=== PATIENT | female | born 1995 | race Caucasian/White ===

== ENCOUNTER 2019-11-29 07:33 | Day surgery (SDC) | payer OTHER, SELFPAY ==
[2019-11-29] VITALS (7 sets, daily range): BP systolic 101–118; BP diastolic 55–70; PULSE 56–78; RESP 15–16; TEMP 36.2–36.4; O2SAT 99–100; BMI 23.8
--- NOTE | 2019-11-29 | MISC_PTH ---
PATIENT: JM ADAMS LOC: [facility] [place] U#:[id number] AGE/SX: 24/F ROOM: RE11/29/[address]: Dr. Anitha Harley MD : 1995 BED: DIS: 11/29/2019 SPEC #: [id number] RECD: 11/29/19 13:30 STATUS: MAT REQ #: [id number] ANTIONE: 11/29/19 00:[address]: Anitha Hills DEPT: SURGICAL PATHOLOGY RECD BY: Duncan Pathak ENTERED: 11/29/19 13:30 SP TYPE: MISC OTHR DR: Dr. Rufina Chairez MD No Primary Care Phys Tissues: A - Peritoneal cavity, NOS B - Endometrial cavity Procedures: Surgery Specimen Level IV HEADER OPERATION: Diagnostic laparoscopy with cystoscopy, lysis of adhesions PRE-OP DIAGNOSIS: Excessive and frequent menstruation with irregular cycle; lower abdominal pain TISSUE SUBMITTED: A - Right uterosacral peritoneal biopsy, B - Endometrial curettings MICROSCOPIC DIAGNOSIS A. Right uterosacral peritoneum, biopsy: Fibrofatty tissue with mild chronic inflammation. B. Endometrium, curettings: Secretory endometrium with glandular and stromal breakdown. AM:kentrell 11/30/19 MICROSCOPIC DESCRIPTION Slides are reviewed. GROSS DESCRIPTION A - Received in fixative is one container labeled with the patient's name and designated right uterosacral peritoneal biopsy. The specimen consists of a fragment of mccloud-pink soft tissue measuring 1.2 x 0.6 x 0.2 cm. The specimen is totally submitted in one cassette. B - Received in fixative is one container labeled with the patient's name and designated endometrial curettings. The specimen consists of multiple fragments of hemorrhagic soft tissue that in aggregate measure 3 x 2.5 x 0.3 cm. The specimen is totally submitted in one cassette. / SJ:kentrell 11/29/19 TC:5 CPT: 36211 x2
--- NOTE | 2019-11-29 06:56 | HP.PCM_ITS ---
History and Physical Date of Admission: 11/29/19 Surgical History and Physical Date: 11/29/2019 Name: JM CRANDALL Age: 24 Date of : 1995 Jm Crandall, a 24 year old female 0 0 0 0 0, presents for Diagnostic laparoscopy, hysteroscopy, d, cystoscopy on November 29, 2019 at 9:00. -- Jm has a hx chronic pelvic pain and heavy prolonged vaginal bleeding refractory to hormonal management. Pt scheduled for Dx Lap with Cystoscopy, hysteroscopy and D and C. Surgical treatment of endometriosis as indicated. Medications and allergies are up to date. Consents signed and reviewed for surgery. hx Deep Pelvic Pain,Daily Bleeding,Increase Migraines. Mj claims it started gradually and has been present worsened in last couple months. It occurs intermittantly. It is located in the lower abdomen. Jm characterizes it to be down to the legs. Jm characterizes the quality sharp.; Jm characterizes the quality searing. Severity is moderate and not improving. MEDICATIONS HISTORY: ALLERGIES: No Known Allergies, Beet and Hives and/or rash Infections - Varicella Vaccine Illnesses - none Accidents - None Hospitalizations - None Review of Systems: GENERAL - Denies fever, or chills SKIN - Denies skin changes EYES - Denies visual changes EARS - Denies difficulty hearing NOSE - Denies nasal congestion or bleeding MOUTH - Denies sore throat or difficulty swallowing NECK - Denies pain or swelling RESPIRATORY - Denies shortness of breath or wheezing CARDIOVASCULAR - Denies palpitations or chest pain GASTROINTESTINAL - Denies nausea, vomiting, diarrhea, constipation GENITOURINARY - Denies dysuria, frequency of urination, incontinence of urine MUSCULOSKELETAL - Denies joint or muscle pain NEUROLOGICAL - Denies localized numbness or weakness PSYCHIATRIC - Denies depression or anxiety ENDOCRINE - Denies heat or cold intolerance, weight loss or gain HEMATO-IMMUNOLOGIC - Denies excesive bleeding with cuts SOCIAL HISTORY: Alcohol Use - occasionally and wine Smoking - denies smoking Diet - no special diet Lifestyle - moderate stress lifestyle and single Exercise - active Seat Belt Use - always Employer - [employer] 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 Illicit Drug Use - denies use of street drugs Sexual Activity - [employer] Residence - rents an apartment Control - condoms FAMILY HISTORY: MENSTRUAL HISTORY: LMP Known?- DefiniteAmount/Duration - 7 to 10 days, Regularity - Regular, Frequency - every 3 months days, LMP - 10/26/19, Age Onset Menarche - 11 PAST PREGNANCIES: Total Pregnancies - 0; Full Term Pregnancies - 0; Premature - 0; Abortions, Induced - 0; Abortions, Spontaneous - 0; Ectopics - 0; Multiple Births - 0; Living Children - 0 PHYSICAL EXAM BP- 122/90 Sitting, Right arm, regular cuff Temp- 98.2 Taken Orally Weight- 147.32777 lbs Height- 65.75 inch BMI:24.05 CONSTITUTIONAL - NAD, well nourished, and well developed SKIN - No rash, lesions, or ulcers HEENT - normocephalic, atraumatic, sclerae anicteric LUNGS - CTA x2 without wheezes, crackles or rales CARDIAC - Regular rate and rhythm without rubs, murmurs, or gallops ABDOMEN - Without hepatosplenomegaly, distention, masses, rebound, or guarding; normal bowel sounds; no hernias EXTREMITIES - No edema or calf tenderness NEUROLOGICAL - normal gait, normal balance, normal motor PSYCHIATRIC - A and O to time, place, person, mood and affect External Genitial Vagina - non-tender without lesions Urethra/Urethral Meatus - non-tender Bladder - +trigonal tenderness Vagina - vaginal mckeon are pink and moist without loss of rugae and no evidence of atropy Cervix - without cervical motion tenderness and has normal size and features without evident lesions, + uterosacral tenderness without nodularity Uterus - 5-6 cm in size, mobile and nontender Adnexa - clear without massess or tenderness Pap - done, nilm 10/29/19 ultrasound 10/29/19 UTERUS: 7.6 x 3.4 x 2.9cm. ENDOMETRIAL ECHO: 6.3mm. RIGHT OVARY: 3.1 x 2.8 x 3.2cm and contains follicular cysts. Largest cyst is 1.4 x 1.1 x 1.2cm.. LEFT OVARY: 2.8 x 1.8 x 1.8cm and contains small follicular cysts.. FREE FLUID: Trace amount in the posterior cul de sac. Laboratory Tests 11/28/19 Range/Units 10:00 COVID-19 (MEHRDAD) Not Detected (Not Detect) ASSESSMENT/PLAN: 1. Excessive And Frequent Menstruation With Irregular Cycle, Lower Abdominal Pain and Unspecified Dfdx endometriosis, IC. AUB persists and pt not candidate for CHCs, sx refractory to POPs. Plan for diagnostic laparoscopy, hysteroscopy, D, cystoscopy Procedural r/b/i/a reviewed Preop pack and preparation discussed Lab pending 2. Lower Abdominal Pain, Unspecified Dfdx interstitial cystitis, endometriosis - cannot r/o both, may also be exacerbated with chronic constipation Refer to Dr. Chairez for eval Pelvic US ordered Plan for diagnostic laparoscopy, hysterocopy (pending US findings), possible cystoscopy as indicated pending Urologic eval Reviewed surgical r/b/i The visit was approximately 25 minutes in length with most of the time spent in discussion and counseling. Procedure Criteria Procedure Type: Elective COVID Risk Discussion: The surgeon/proceduralist and patient have discussed in detail the risk of exposure to and/or potential harm posed by the COVID-19 virus with having a surgery/procedure at this time versus the risk of delaying the surgery/procedure. It is not possible to know either the risk of delaying the surgery or procedure or chance of getting an infection with perfect accuracy, but a joint decision was made between the patient and the surgeon/proceduralist to proceed at this time with the scheduled surgery/procedure as indicated on the consent form.
[2019-11-29 08:02] LABS: Internal QC Validated? YES +Cl - CLEAR BKGD; Pregnancy, Urine Negative Negative
[2019-11-29 08:04] LABS: Hematocrit 40.3 % (37-47); Hemoglobin 13.3 g/dL (12.0-15.0); Mean Corpuscular Hgb 29.8 pg (27.0-32.0); Mean Corpuscular Volume 90.4 fL (81-99); Mean Platelet Vol. 9.2 fl (6.2-12.0); Platelet Count 302 K/mm3 (150-450); RBC Distribution Width CV 12.1 % (11.6-14.6); RBC Distribution Width SD 39.6 fl (35.1-43.9); Red Blood Count 4.46 M/mm3 (4.2-5.4); White Blood Count 5.5 K/mm3 (4.4-11.0)
--- NOTE | 2019-11-29 08:09 | HP.PCM_ITS ---
Problem List (1) Urinary urgency Status: Acute (2) Urinary frequency Status: Acute (3) Bladder pain Status: Acute History of Present Illness Date of Admission: 11/29/19 Chief Complaint: bladder pain, urinary urgency and frequency. The patient is a 24 year old F voiding as often as every 10 minutes, nocturia once, no incontinence. Pelvic pain on the left side mainly, and on exam it is tender to palpation of the left lateral bladder area. Risks, benefits and alternatives were discussed, including that of COVID-19, and she has decided to proceed with cystoscopy under anesthesia for further evaluation. Past Medical History Allergies No Known Allergies Allergy (Verified 11/29/19 07:56) Home Medications: Ambulatory Orders Medication Instructions Recorded Multivitamin with Minerals 1 ea PO DAILY 11/22/19 [Multiple Vitamin] Smoking Status: Never smoker Tobacco Use: Non-smoker Review of Systems Constitutional: Denies: Anorexia, Chills, Fever Eyes: Denies: Vision Change HEENT: Denies: Difficulty Swallowing Cardiovascular: Denies: Chest Pain, Chest Tightness Respiratory: Denies: Cough, Shortness of Breath Gastrointestinal: Reports: - - pelvic pain, bladder pain. Denies: Abdominal Pain Genitourinary: Denies: Dysuria Gynecological: Denies: Vaginal discharge Skin: Denies: Wounds Neurological: Denies: Difficulty swallowing VTE Information - Inpt Only VTE Present on Admission: Yes VTE Mechan Device Prophylaxis: SCD's VTE Pharm Prophylaxis ordered?: No Reason prophylaxis not ordered:: Treatment Not Indicated Patient Problems: Active and Suspected Problems Urinary urgency (Acute) Urinary frequency (Acute) Bladder pain (Acute) - Physical Exam Vitals/I&O's: Vital Signs Temp Pulse Resp BP Pulse Ox 97.5 F L 78 15 116/70 100 11/29/19 07:57 11/29/19 07:57 11/29/19 07:57 11/29/19 07:57 11/29/19 07:57 Oxygen Delivery Method Room Air Weight: 67.1 kg Body Mass Index (BMI) 23.8 General: Alert, Oriented x3, Cooperative, No apparent distress HEENT: Atraumatic, Normocephalic Oral: Moist Mucosa Neck: Supple, Trachea Midline Lungs: Normal air movement Cardiovascular: Regular rate, Regular Rhythm Abdomen: Soft, Non Tender, Non-Distended Extremities: No clubbing Skin: No rashes Musculoskeletal: No Muscle Wasting Neurological: Cranial nerves II-XII grossly intact, Neuro grossly intact Psych/Mental Status: Normal Affect Laboratory Results 11/28/19 10:00: COVID-19 (MEHRDAD) Not Detected 11/29/19 07:50: Urine Test Negative 11/29/19 07:55: WBC 5.5, RBC 4.46, Hgb 13.3, Hct 40.3, MCV 90.4, MCH 29.8, MCHC 33.0, RDW Std Deviation 39.6, RDW Coeff of Fadumo 12.1, Plt Count 302, MPV 9.2 11/29/19 07:55: PT Pending, INR Pending, APTT Pending 11/29/19 07:55: Blood Type Pending, Antibody Screen Pending Current Medications Cefotetan Disodium 2 gm/ (Sodium Chloride) 100 mls @ 200 mls/hr IV PREOP ONE Stop: 11/29/19 09:34 Assessment/Plan All Active Problems Urinary urgency (Acute) Urinary frequency (Acute) Bladder pain (Acute) cystoscopy, possible bladder biopsy with fulguration, possible hydrodistention Procedure Criteria Procedure Type: Elective Procedure Essential: Yes Criteria Statement: On 08/28/2019 the [place] Department of Health ([facility]) Public Order signed by [facility] Director Nola Hernandez M.D., regarding the Management of Non-Essential Surgeries and Procedures for the purpose of preserving Personal Protective Equipment (PPE) and critical hospital capacity and resources within [place] went into effect as of 08/29/2019 at 5:00PM. According to the [facility] Public Order: This action will remain in full force and effect until the State of Emergency declared by the Governor no longer exists or the Director of the [facility] rescinds or modifies this Order. This [facility] order stated all non-essential or elective surgeries and procedures that utilize PPE should be delayed unless there is undue risk to the current or future health of a patient. After reviewing the aforementioned [facility] Public Order and the patient's clinical case, I have determined that the scheduled procedure meets the criteria to go forward. Risk to Patient if Procedure Delayed: Presence of severe symptoms causing an inability to perform ADL's - pain, urgency and frequency are affecting her daily life adversely COVID Risk Discussion: The surgeon/proceduralist and patient have discussed in detail the risk of exposure to and/or potential harm posed by the COVID-19 virus with having a surgery/procedure at this time versus the risk of delaying the surgery/procedure. It is not possible to know either the risk of delaying the surgery or procedure or chance of getting an infection with perfect accuracy, but a joint decision was made between the patient and the surgeon/proceduralist to proceed at this time with the scheduled surgery/procedure as indicated on the consent form.
[2019-11-29] MEDS: Lactated Ringers 1,000 ML 100 ML IV (08:14)
[2019-11-29 08:25] LABS: Prothrombin Time (Protime)PT. 13.1 SECONDS (11.7-14.9)
[2019-11-29 08:26] LABS: Partial Thromboplast Time 29.2 Seconds (24.1-36.2)
--- NOTE | 2019-11-29 10:50 | DCINST_ITS ---
Discharge Diet: No Restrictions Discharge Activity: Return to Normal Activity, May not drive while taking narcotic pain medications., May Shower, - - No tub bath for 1-2 weeks May resume sexual activity in: - - 2-4 weeks Lifting Restrictions: 10-20 lb Call your doctor if you observe: Fever of 101 or Higher, Inability to urinate, Inability to have a bowel movement, Using more than one pad per hour, Shortness of breath, Chest pain, Calf discomfort, Uncontrolled pain Remove Dressing in (days):: 1 - remove the outter dressing in 24h, remove steristrips in 5 days Cleanse incision/area with: Soap & Water Allergies/Adverse Reactions: Allergies No Known Allergies Allergy (Verified 11/29/19 07:56) Medications to take at Discharge Multivitamin with Minerals [Multiple Vitamin] 1 ea PO DAILY 11/22/19 Primary Care Physician: Care Physician,No Primary [Primary Care Provider] - Test Results: Test results from this visit will be discussed in further detail at your follow- up appointment, if applicable. Please Follow Up With: Anitha Manning MD When: 2-4 weeks Please Follow Up With: Rufina Chairez MD When: 2-4 weeks
--- NOTE | 2019-11-29 10:53 | OP.PCM_ITS ---
Problem List (1) Urinary urgency Status: Acute (2) Urinary frequency Status: Acute (3) Bladder pain Status: Acute (4) Dysmenorrhea Status: Acute (5) Excessive and frequent menstruation Status: Acute Report of Operation Date of Procedure: 11/29/19 Pre-Operative Diagnosis: 1. Dysmenorrhea. 2. Excessive and frequent menstruation with regular cycle. 3. Bladder pain, Urinary frequency Post-Operative Diagnosis: same Surgery/Procedure Performed:: 1. Diagnostic laparoscopy. 2. Peritoneal biopsy. 3. Lysis of adhesions. 4. hysteroscopy. 5. dilation and curettage. 6. Interceed intra-abdominal placement Description of Surgical Findings:: Possible endometriosis along right uterosacral ligament Abundant endometrium, normal uterine cavity crew person: Mary Wilkerson Type of Anesthesia:: Epidural/Supplement, Local Anesthesiologist: Jaxon Gonzales Specimen's removed: 1. right uterosacral peritoneum. 2. endometrial curettings Estimated Blood Loss (mL): 10 Description of Procedure: Indications: 24-year-old nulligravida with a history of persistent dysmenorrhea and prolonged menstrual bleeding refractory to hormonal therapy presents for diagnostic laparoscopy, hysteroscopy, dilation and curettage. The patient also has chronic bladder pain and urinary frequency will undergo cystoscopy performed by Dr. Rodri Moeller of urology. Procedural risks, benefits, indications and alternatives were reviewed. The patient desired to proceed and informed consent was obtained prior to the procedure. Procedure: The patient was brought to the operating room and signed it was performed. She is placed in the dorsal supine position and induced under and general anesthesia and intubated. She was then repositioned to dorsolithotomy and her arms were tucked at her sides. The perineum and abdomen were prepped and draped in sterile fashion. Straight catheterization of the bladder was performed. The patient was placed into high lithotomy a bivalve speculum was placed vaginally the cervix grasped the anterior cervical lip using a single- tooth tenaculum. The uterus sounded to 7 cm. A ZUMI uterine manipulator was placed and secured. The tenaculum was removed from the cervix as was the speculum. The patient was then placed into low lithotomy attention turned to the abdomen. 1% lidocaine was injected at the inferior umbilicus and incision was made. A Veress needle was introduced abdominally however there is no successful hanging drop. The Veress needle was removed and I proceeded with laparoscopic entry using 5 mm port confirming entry into the abdominal cavity. The patient was placed into an Trendelenburg. Additional lidocaine was placed subcutaneously suprapubically and incision made at the site. A 5 mm port was placed suprapubically and inspection of the abdomen and pelvis performed. There was left pericolic flexure adhesions as well as right mid colonic adhesion to the anterior and abdominal sidewall. The appendix, uterus, tubes and ovaries were notably normal in appearance. There was an area of brown-tinged peritoneum over the right uterosacral that may have been endometriosis but no other gross signs. A tap block was performed in the left lower quadrant using lidocaine and incision was made under transillumination. An additional 5 mm port was placed at the site. I proceeded with sharp and blunt dissection of the left pericolic adhesions with increasing mobility. The right abdominal adhesions were also sharply lysed with anatomy restored. A right uterosacral peritoneal biopsy was performed with excision of superficial peritoneum at the area of possible endometriosis. This area did course adjacent to the right ureter. Bleeding arteriole was grasped using the [place] and electrocoagulated with hemostasis obtained. The peritoneum specimen was removed via the port. Interceed was placed over the biopsy site. Portion of the procedure was complete. The abdomen was desufflated, ports were removed from the abdomen. The skin was closed using 4-0 Monocryl by the [employer] under my supervision. Steri-Strips and OpSite dressing were placed over these incisions. Attention was turned to the perineum and patient was placed into high lithotomy. The bivalve speculum was again placed vaginally and the ZUMI uterine or red manipulator was removed. The cervix was grasped using a single-tooth tenaculum and subsequently dilated further. Hysteroscopy was performed demonstrating abundant endometrium however no anatomic defects were present. Sharp curettage was performed and again followed by hysteroscopy showing thinning of the uterine lining. The tenaculum was removed from the cervix. The tenaculum site became hemostatic following compression. The speculum was removed from the vagina and this completed this portion of the procedure. At this time Dr. Chairez arrived and performed the patient was with hydrodistention. Please refer to her operative report. Following completion of cystoscopy the patient was placed into dorsal supine position, awakened, extubated and transferred to the recovery room without complication. Patient tolerated the procedure well. Sponge counts were correct x2. - Complications None - Admit VTE Documentation VTE Present on Admission: No VTE Mechan Device Prophylaxis: SCD's VTE Pharm Prophylaxis ordered?: No
--- NOTE | 2019-11-29 11:00 | OP.PCM_ITS ---
Problem List (1) Urinary urgency Status: Acute (2) Urinary frequency Status: Acute (3) Bladder pain Status: Acute Report of Operation Date of Procedure: 11/29/19 Pre-Operative Diagnosis: urinary urgency, frequency and bladder pain Post-Operative Diagnosis: same Surgery/Procedure Performed:: cystoscopy, hydrodistention Description of Surgical Findings:: 700cc capacity. No glomerulations, ulcerations or terminal hematuria. Type of Anesthesia:: General Description of Procedure: The patient is a 24-year-old female with urinary urgency, frequency and bladder pain. After discussing risks benefits and alternatives including the risk of COVID-19, she desired to proceed with further evaluation under anesthesia with cystoscopy, possible biopsy, possible hydrodistention. Patient was taken to the operating room by Dr. Dolores Harley and following her pr ocedure, the patient was left in stirrups in dorsal lithotomy position. She she was already prepped and draped in usual sterile fashion. The 70 degree lens cystoscope was inserted through the urethra under direct visualization into the urinary bladder. There were no ulcerations, areas of erythema, bladder mass or foreign body identified. There is no injury identified from Dr. Dolores Harley's procedure. At this time bilateral clear ureteral jets were observed. The bladder was filled to capacity and left to sit for 2 minutes. The capacity was measured at 700 cc. There was no terminal hematuria present. Upon reentry into the urinary bladder she was once again filled to capacity. There were no glomerulations identified at this time. She was left to sit for 2 minutes. She was emptied again and her capacity was once again measured at 700 cc. The patient's bladder was then emptied and she was awakened and taken to the recovery room in good condition. There were no complications during this procedure. - Complications none - Admit VTE Documentation VTE Present on Admission: Yes VTE Mechan Device Prophylaxis: SCD's VTE Pharm Prophylaxis ordered?: No Reason prophylaxis not ordered:: Treatment Not Indicated
--- NOTE | 2019-11-29 11:06 | PCM.DC.URO ---
Discharge Diet: No Restrictions Discharge Activity: Return to Normal Activity, May not drive while taking narcotic pain medications., May Shower, - - No tub bath for 1-2 weeks May resume sexual activity in: - - 2-4 weeks Call your doctor if you observe: Fever of 101 or Higher, Inability to urinate, Inability to have a bowel movement, Using more than one pad per hour, Shortness of breath, Chest pain, Calf discomfort, Uncontrolled pain Remove Dressing in (days):: 1 - remove the outter dressing in 24h, remove steristrips in 5 days Cleanse incision/area with: Soap & Water Allergies/Adverse Reactions: Allergies No Known Allergies Allergy (Verified 11/29/19 07:56) Medications to take at Discharge Multivitamin with Minerals [Multiple Vitamin] 1 ea PO DAILY 11/22/19 Acetaminophen/Codeine #3 [Tylenol#3] 1 - 2 tablet PO Q8H PRN PRN 3 Days #10 tablet 11/29/19 Cephalexin [Keflex] 500 mg PO Q12 3 Days #6 cap 11/29/19 Phenazopyridine HCl [Pyridium] 200 mg PO TID PRN PRN 7 Days #30 tab 11/29/19 The following prescriptions were given: Cephalexin [Keflex] 500 mg PO Q12 3 Days #6 cap Transmission Status[facility] Phenazopyridine HCl [Pyridium] 200 mg PO TID PRN PRN 7 Days #30 tab PRN Reason: Bladder Spasms Transmission Status: [facility] Acetaminophen/Codeine #3 [Tylenol#3] 1 - 2 tablet PO Q8H PRN PRN 3 Days #10 tablet PRN Reason: Pain Score 6-10/10 Transmission Status: [facility] Primary Care Physician: Care Physician,No Primary [Primary Care Provider] - Test Results: Test results from this visit will be discussed in further detail at your follow-up appointment, if applicable. Please Follow Up With: Rufina Chairez MD When: in 3-4 weeks, call office for appt Proposed Discharge Date: 11/29/19
== END 2019-11-29 14:00 | disposition home or self-care (01) ==
LOC: SDC 07:41 → AC 07:42
PROVIDERS: Anesthesiology; Urology; Referring Provider Obstetrics & Gynecology; Visit Provider Obstetrics & Gynecology
PROC: (CPT 49320; principal; 2019-11-29 08:50)
PROC: 0UDB8ZZ Extraction of Endometrium, Via Natural or Artificial Opening Endoscopic (ICD-10-PCS; CPT 58558; 2019-11-29 08:50)
PROC: 0T7B7ZZ Dilation of Bladder, Via Natural or Artificial Opening (ICD-10-PCS; CPT 52000; 2019-11-29 08:50)
DX: N94.6 Dysmenorrhea, unspecified (principal); N92.0 Excessive and frequent menstruation with regular cycle; R39.15 Urgency of urination; R35.0 Frequency of micturition; R39.89 Other symptoms and signs involving the genitourinary system; Z11.59 Encounter for screening for other viral diseases
CPT/HCPCS: 44180; 49321; 52000; 58558; 36415; 81025; 85027; 85610; 85730; 86850; 86900; 86901; 87635; 88305; G2023; J7120; J2405; U0003